=== PATIENT | female | born 1930 | race Caucasian/White ===

== ENCOUNTER 2017-11-18 21:46 | Emergency (ER) | payer MEDICARE, OTHER ==
[~2017-11-18] VITALS: Wt 53.5 kg
[~2017-11-18 21:46] MED LIST: ASPIRIN ADULT L81 M2 PO; ASPIRIN325 MG PO; CALCI-MAX CAPS1 EACH PO; CALCIUM 600600 M2 PO; CEROVITE SENIOR1 TA1 PO; CIPRO500 MG PO; COUMADIN1 M1 PO; COUMADIN3 M1 PO; DIPHENHYDRAMINE PO; DOCUSATE SODIU100 M2 PO; DUREZOL 5 ML5 ML OD; EFFEXOR XR150 M1 PO; ESCITALOPRAM OX10 MG PO; FOSAMAX70 M1 PO; FOSAMAX70 MG PO; Ferrex 150150 MG PO; GOOD SENSE PAI650 M1 PO; HYDROCODONE BIT1 T11 PO; LISINOPRIL2.5 MG PO; LISINOPRIL5 MG PO; Lovenox40 MG/0.4 PO; MEGACE40 MG PO; MIRALAX POWDER17 G1 PO; MOTRIN800 MG PO; NORCO 325 MG-51 TAB PO; NORCO 5-325 TA1 EACH PO; OCUVITE1 TA1 PO; POLYETHYLE17 GM/Dose PO; PRAVACHOL20 MG PO; PRAVACHOL40 MG PO; PRESERVISION A1 EAC1 PO; PRISTIQ ER25 MG PO; PROLENSA3 ML OD; PROTONIX TR40 M1 PO; SYNTHROID,LEVO25 MCG PO
[2017-11-18 21:49] VITALS: BP 135/57
[2017-11-18 22:32] LABS: BASO # 0.1 10*3/uL (0.0-0.1); BASO % 0.6 % (0.0-1.0); EOS # 0.2 10*3/uL (0.0-0.4); EOS % 2.4 % (1.0-4.0); HEMOGLOBIN 12.7 g/dl (12.0-16.0); LYMPH # 2.6 10*3/uL (1.3-4.4); LYMPH % 30.9 % (27.0-41.0); MEAN CELL VOLUME 93.3 fl (81.0-99.0); MEAN CORPUSCULAR HGB 30.4 pg (27.0-31.0); MEAN CORPUSCULAR HGB CONC 32.6 g/dl (33.0-37.0); MEAN PLATELET VOLUME 8.7 fl (9.6-12.3); MONO # 0.9 10*3/uL (0.1-1.0); MONO % 10.3 % (3.0-9.0); NEUT # 4.7 10*3/uL (2.3-7.9); NEUT % 55.6 % (47.0-73.0); PLATELET COUNT AUTOMATED 211 10*3/uL (130-400); RED BLOOD COUNT 4.18 10*6/uL (4.10-5.10); RED CELL DISTRI WIDTH 13.6 % (0-14.5); WHITE BLOOD COUNT 8.4 10*3/uL (4.8-10.8)
[2017-11-18 22:41] LABS: ACT PARTIAL THROMBO TIME 24.2 SECONDS (20.8-31.5)
[2017-11-18 22:49] LABS: ALBUMIN 3.6 gm/dl (3.1-4.5); ALKALINE PHOSPHATASE 102 U/L (45-117); BUN 18 mg/dl (7-24); CHLORIDE 95 mmol/L (98-107); CREATININE 0.81 mg/dL (0.55-1.02); POTASSIUM 4.8 mmol/L (3.5-5.1); SGOT/AST 24 IU/L (3-35); SGPT/ALT 23 U/L (12-78); SODIUM 129 mmol/L (136-145); TOTAL PROTEIN 8.1 gm/dL (6.4-8.2); TROPONIN I < 0.015 ng/ml (<0.045)
== END 2017-11-18 23:52 | disposition other institution (70) ==
LOC: ED 21:46
PROVIDERS: Student in an Organized Health Care Education/Training Program
DX: I73.9 Peripheral vascular disease, unspecified (principal); Z79.899 Other long term (current) drug therapy; Z79.82 Long term (current) use of aspirin; Z86.73 Personal history of transient ischemic attack (TIA), and cerebral infarction without residual deficits

== ENCOUNTER → 2017-12-25 | Outpatient (CLI) | payer MEDICARE, OTHER ==
[~2017-12-25] MED LIST changes: +ALENDRONATE SOD70 M1 PO; +ASPIRIN81 M1 PO; +CALCIUM CARBON600 M4 PO; +CEFUROXIME AXE250 MG PO; +DEPAKOTE SPRIN125 MG PO; +DOCUSOFT-S100 MG PO; +MILK OF MA400 MG/52 PO; +PEG3350238 GM PO; +PRESERVISION A1 EACH PO; +PROTONIX40 MG PO; +Synthroid,Levo50 MCG PO; +TYLENOL325 M3 PO; +ZESTRIL2.5 MG PO
== END | disposition home or self-care (01) ==
LOC: CT 09:44
DX: I70.298 Other atherosclerosis of native arteries of extremities, other extremity (principal); I74.3 Embolism and thrombosis of arteries of the lower extremities; I73.9 Peripheral vascular disease, unspecified

== ENCOUNTER 2018-01-28 16:55 | Inpatient (IN) | payer MEDICARE, OTHER ==
[~2018-01-28] VITALS: Ht 157.4 cm; Wt 53.6 kg
--- NOTE | ~2018-01-28 | PR ---
[place], [place] PROGRESS NOTE NAME: RUBIO TONEY [facility] #: [id number] UNIT #: [id number] ROOM: 420 DOCTOR: CORY ARZOLA MD BIRTHDATE: [birth year] DOS: 01/30/2018 SUBJECTIVE: The patient is doing well without any complaints. She is sitting up in a chair. She is awake and alert and oriented; does not have any chest pain or shortness of breath. PHYSICAL EXAMINATION: VITAL SIGNS: Blood pressure is 149/82, pulse of 80, respirations 16, temperature 97.8. LUNGS: Clear. HEART: Regular. ABDOMEN: Obese, soft, nontender. EXTREMITIES: Without any edema. ASSESSMENT AND PLAN: 1. Chronic atrial fibrillation, not a candidate for anticoagulants, this is controlled. 2. Hypotension, possibly from poor p.o. intake. Lisinopril was discontinued, but the blood pressure is starting to go up, so we will restart the medicine. 3. Adult failure to thrive. She is stable and can go back to the correction today. 4. Urinary tract infection. Urine culture has come back negative, but she will finish the course of Ceftin as an outpatient. CORY ARZOLA MD CM:PNNAMAN 0 53 CORY ARZOLA MD 01/30/18 175 interface
--- NOTE | ~2018-01-28 | PR ---
[place], [place] PROGRESS NOTE NAME: RUBIO TONEY [facility] #: [id number] UNIT #: [id number] ROOM: 420 DOCTOR: CORY ARZOLA MD BIRTHDATE: [birth year] DOS: 01/31/2018 SUBJECTIVE: The patient is about the same, does not have any new complaints. She was supposed to be discharged yesterday, but was held back because the long-term felt that one more day stay in the hospital would help get her long-term approved. OBJECTIVE: VITAL SIGNS: Blood pressure is 119/90, pulse of 88, respirations 20, temperature 98.7. LUNGS: Diminished breath sounds, clear. HEART: Regular. ABDOMEN: Obese, soft, nontender. EXTREMITIES: Without any edema. ASSESSMENT AND PLAN: 1. The patient with adult failure to thrive. The patient to go back to long-term. 2. Hypotension, possibly from poor p.o. intake, which is hydrated and the pressures have come back up. 3. Chronic atrial fibrillation, not a candidate for any anticoagulation. The patient is also at high risk for transient ischemic attacks. PLAN: Plan is to discharge today and follow up as an outpatient. CORY ARZOLA MD CM:PNTRANS [id number] CORY ARZOLA MD 02/19/18 0052 interface
--- NOTE | ~2018-01-28 | DS ---
[place], [place] DISCHARGE SUMMARY NAME: RUBIO TONEY [facility] #: [id number] UNIT #: [id number] ROOM: 420 DOCTOR: CORY ARZOLA MD BIRTHDATE: [birth year] DOS: 01/30/2018 DIAGNOSES: 1. Hypotension which has resolved. 2. Benign hypertension. 3. Chronic atrial fibrillation. 4. Depakote toxicity. 5. Urinary tract infection has been ruled out. 6. Adult failure to thrive. 7. History of multiple falls. 8. Postmenopausal osteoporosis. HOSPITAL COURSE: This patient is very well known to us. She was found to be increasingly weak, tired and was hypotensive at the half-way. The patient was brought to the Emergency Room. She did not have any evidence of dehydration, but the patient was placed on fluids and a possibility of UTI was raised. She also had extremely elevated Depakote levels. The Depakote was discontinued. After that the patient has improved. She has perked up and is more awake and alert and oriented. Answers questions appropriately. Her lisinopril will be restarted because the blood pressure has starting to go up at a lower dose. The patient is stable and improved and is not having any complaints today, so plan is to discharge her to home today. Please do not start the patient back on Depakote. The rest of the discharge medications are: Ceftin 250 twice a day for 5 days, alendronate 70 once weekly, calcium 600 mg twice a day, aspirin 81 daily, Colace 100 b.i.d., lisinopril 2.5 daily, MiraLax 17 grams daily p.r.n., pravastatin 40 daily, PreserVision 1 tablet daily, Pristiq 50 mg daily, Protonix 40 daily, levothyroxine 50 mcg daily, Tylenol 325 q. 6 p.r.n. CORY ARZOLA MD CM:DISCHARG 3 CORY ARZOLA MD 01/30/18 0932 interface
--- NOTE | ~2018-01-28 | WRIGHTHP ---
[place], [place] PATIENT HISTORY AND PHYSICAL EXAM [id number] UNIT #: [id number] ROOM: 420 DOCTOR: CORY ARZOLA MD BIRTHDATE: [birth year] DOS: HISTORY OF PRESENT ILLNESS: This patient is very well known to us. The patient comes in with complaints of hypotension. The staff at the residential called and stated the patient has been increasingly weak for the last few days and was noted to have low blood pressure, so the patient was sent out to the Emergency Room where she was evaluated and was admitted. She denies having any chest pains, palpitations, does not have any fever or chills, does not have any abdominal pain, nausea, any emesis, does not have any chest pains or palpitations. PAST MEDICAL HISTORY: Significant for: 1. Chronic atrial fibrillation, not a candidate for anticoagulation. 2. Multiple falls. 3. Adult failure to thrive. 4. Benign hypertension. 5. Postmenopausal osteoporosis. MEDICATIONS: That the patient is currently on are lisinopril 2.5, Fosamax, calcium supplement, major depression. SOCIAL HISTORY: Nonsmoker. Does not use any alcohol. PHYSICAL EXAMINATION: GENERAL: The patient is awake and alert and oriented this morning. VITAL SIGNS: Graphic trend shows a blood pressure 136/68, pulse of 76, respirations 19, temperature 98.3. LUNGS: Clear. HEART: Regular. ABDOMEN: Soft. EXTREMITIES: Without any edema. ASSESSMENT AND PLAN: 1. Hypotension, possibly from poor p.o. intake and antihypertensives, which will be discontinued. 2. Possible urinary tract infection. Urine culture has been reflexed. IV antibiotics have been started. 3. Adult failure to thrive, should be able to go back to the residential once we identify the bacteria. [place], [place] PATIENT HISTORY AND PHYSICAL EXAM NAME: RUBIO TONEY UNIT #: [id number] ROOM: 420 DOCTOR: CORY ARZOLA MD BIRTHDATE: [birth year] CORY ARZOLA MD CM:HISPHYS:PATIENT HISTORY AND PHYSICAL EXAMINATION 2 0833 CORY ARZOLA MD 02/19/18 0052 interface
[~2018-01-28 16:55] MED LIST changes: -ALENDRONATE SOD70 M1 PO; -ASPIRIN81 M1 PO; -CALCIUM CARBON600 M4 PO; -CEFUROXIME AXE250 MG PO; -DEPAKOTE SPRIN125 MG PO; -DOCUSOFT-S100 MG PO; -MILK OF MA400 MG/52 PO; -PEG3350238 GM PO; -PRESERVISION A1 EACH PO; -PROTONIX40 MG PO; -Synthroid,Levo50 MCG PO; -TYLENOL325 M3 PO; -ZESTRIL2.5 MG PO
[2018-01-28 17:01] VITALS: BP 102/56
[2018-01-28] MEDS ORDERED: ALENDRONATE SOD70 M1 PO (17:20)
[2018-01-28] MEDS ORDERED: ASPIRIN81 M1 PO (17:21)
[2018-01-28] MEDS ORDERED: CALCIUM CARBON600 M4 PO (17:21)
[2018-01-28] MEDS ORDERED: DEPAKOTE SPRIN125 MG PO (17:22)
[2018-01-28] MEDS ORDERED: ZESTRIL2.5 MG PO (17:22)
[2018-01-28] MEDS ORDERED: DOCUSOFT-S100 MG PO (17:22)
[2018-01-28] MEDS ORDERED: MILK OF MA400 MG/52 PO (17:22)
[2018-01-28] MEDS ORDERED: PRESERVISION A1 EACH PO (17:23)
[2018-01-28] MEDS ORDERED: PEG3350238 GM PO (17:23)
[2018-01-28] MEDS ORDERED: PRAVACHOL40 MG PO (17:23)
[2018-01-28] MEDS ORDERED: PROTONIX40 MG PO (17:24)
[2018-01-28] MEDS ORDERED: Synthroid,Levo50 MCG PO (17:24)
[2018-01-28] MEDS ORDERED: PRISTIQ ER25 MG PO (17:24)
[2018-01-28] MEDS ORDERED: TYLENOL325 M3 PO (17:25)
[2018-01-28 17:30] LABS: BILIRUBIN NEGATIVE (NEGATIVE); BLOOD NEGATIVE (NEGATIVE); CLARITY SL CLOUDY (CLEAR); COLOR YELLOW (YELLOW); GLUCOSE NEGATIVE (NEGATIVE); KETONE TRACE (NEGATIVE); LEUKO ESTERASE 1+ (NEGATIVE); NITRITE NEGATIVE (NEGATIVE)
[2018-01-28 17:38] LABS: BACTERIA 2+; EPITHELIAL CELLS TNTC; RBC 0-2 rbc/hpf (0-2); URIC ACID CRYSTALS TR
[2018-01-28 17:52] LABS: BASO % 0.2 % (0.0-1.0); EOS # 0.1 10*3/uL (0.0-0.4); EOS % 0.7 % (1.0-4.0); HEMATOCRIT 39.7 % (37.0-47.0); HEMOGLOBIN 12.9 g/dl (12.0-16.0); LYMPH # 2.2 10*3/uL (1.3-4.4); LYMPH % 23.8 % (27.0-41.0); MEAN CELL VOLUME 94.7 fl (81.0-99.0); MEAN CORPUSCULAR HGB 30.8 pg (27.0-31.0); MEAN CORPUSCULAR HGB CONC 32.5 g/dl (33.0-37.0); MEAN PLATELET VOLUME 9.9 fl (9.6-12.3); MONO # 0.7 10*3/uL (0.1-1.0); MONO % 7.9 % (3.0-9.0); NEUT # 6.2 10*3/uL (2.3-7.9); NEUT % 67.2 % (47.0-73.0); PLATELET COUNT AUTOMATED 160 10*3/uL (130-400); RED BLOOD COUNT 4.19 10*6/uL (4.10-5.10); RED CELL DISTRI WIDTH 14.5 % (0-14.5); WHITE BLOOD COUNT 9.2 10*3/uL (4.8-10.8)
[2018-01-28 18:10] LABS: ALBUMIN 3.1 gm/dl (3.1-4.5); ALKALINE PHOSPHATASE 83 U/L (45-117); BUN 23 mg/dl (7-24); CHLORIDE 98 mmol/L (98-107); CREATININE 0.75 mg/dL (0.55-1.02); POTASSIUM 4.9 mmol/L (3.5-5.1); SGOT/AST 18 IU/L (3-35); SGPT/ALT 14 U/L (12-78); SODIUM 135 mmol/L (136-145); TOTAL PROTEIN 7.4 gm/dL (6.4-8.2)
[2018-01-28 18:34] VITALS: BP 98/54
[2018-01-28 20:00] VITALS: BP 102/52
[2018-01-29] VITALS: BP 136/68
[2018-01-29 06:34] LABS: BASO % 0.6 % (0.0-1.0); EOS # 0.1 10*3/uL (0.0-0.4); EOS % 1.7 % (1.0-4.0); HEMATOCRIT 39.3 % (37.0-47.0); HEMOGLOBIN 12.6 g/dl (12.0-16.0); LYMPH # 2.5 10*3/uL (1.3-4.4); LYMPH % 39.7 % (27.0-41.0); MEAN CELL VOLUME 94.5 fl (81.0-99.0); MEAN CORPUSCULAR HGB 30.3 pg (27.0-31.0); MEAN CORPUSCULAR HGB CONC 32.1 g/dl (33.0-37.0); MEAN PLATELET VOLUME 9.9 fl (9.6-12.3); MONO # 0.6 10*3/uL (0.1-1.0); MONO % 9.1 % (3.0-9.0); NEUT # 3.1 10*3/uL (2.3-7.9); NEUT % 48.6 % (47.0-73.0); PLATELET COUNT AUTOMATED 165 10*3/uL (130-400); RED BLOOD COUNT 4.16 10*6/uL (4.10-5.10); RED CELL DISTRI WIDTH 14.3 % (0-14.5); WHITE BLOOD COUNT 6.3 10*3/uL (4.8-10.8)
[2018-01-29 06:35] LABS: BUN 19 mg/dl (7-24); CHLORIDE 102 mmol/L (98-107); CREATININE 0.75 mg/dL (0.55-1.02); POTASSIUM 4.1 mmol/L (3.5-5.1); SODIUM 137 mmol/L (136-145)
[2018-01-29 08:00] VITALS: BP 112/80; BP 154/87
[2018-01-29 12:00] VITALS: BP 146/71
[2018-01-29 16:00] VITALS: BP 136/64
[2018-01-29 20:00] VITALS: BP 149/85
[2018-01-30] VITALS: BP 149/82
[2018-01-30] MEDS ORDERED: CEFUROXIME AXE250 MG PO (07:57)
[2018-01-30 08:00] VITALS: BP 152/73; BP 152/88
[2018-01-30 12:00] VITALS: BP 144/79
[2018-01-30 16:00] VITALS: BP 147/77
[2018-01-30 20:00] VITALS: BP 152/82
[2018-01-31] VITALS: BP 167/85
[2018-01-31 08:00] VITALS: BP 119/90
[2018-04-12] MEDS ORDERED: CYMBALTA60 MG PO (22:01)
[2018-04-12] MEDS ORDERED: RANITIDINE HCL300 M2 PO (22:01)
[2018-04-12] MEDS ORDERED: LASIX20 MG PO (22:02)
[2018-04-12] MEDS ORDERED: FOSAMAX70 M1 PO (22:03)
[2018-04-12] MEDS ORDERED: ASPIRIN CHEWABL81 MG PO (22:04)
[2018-04-13] MEDS ORDERED: EXELON1 EAC1 T (02:48)
[2018-04-13] MEDS ORDERED: PRESERVISION A1 EAC2 PO (02:58)
[2018-04-16] MEDS ORDERED: LOSARTAN POTASS50 M1 PO (08:26)
== END 2018-01-31 11:03 | disposition other institution (70) | DRG 314 ==
LOC: ED 16:55 → EDHOLD 18:28 → 4E 18:28
PROVIDERS: Emergency Medicine; Internal Medicine
DX: I95.9 Hypotension, unspecified (principal); G93.41 Metabolic encephalopathy; E86.0 Dehydration; E87.1 Hypo-osmolality and hyponatremia; I48.2 Chronic atrial fibrillation; I73.9 Peripheral vascular disease, unspecified; I10 Essential (primary) hypertension; M81.0 Age-related osteoporosis without current pathological fracture; R62.7 Adult failure to thrive; T42.6X5A Adverse effect of other antiepileptic and sedative-hypnotic drugs, initial encounter; Z79.82 Long term (current) use of aspirin; Z79.899 Other long term (current) drug therapy; Z86.73 Personal history of transient ischemic attack (TIA), and cerebral infarction without residual deficits; Z87.81 Personal history of (healed) traumatic fracture; Z98.51 Tubal ligation status; Y92.89 Other specified places as the place of occurrence of the external cause

== ENCOUNTER 2018-03-17 19:46 | Inpatient (IN) | payer MEDICARE, OTHER ==
[~2018-03-17] VITALS: Ht 152.4 cm; Wt 51.8 kg
--- NOTE | ~2018-03-17 | DS ---
[place], [place] DISCHARGE SUMMARY NAME: RUBIO TONEY UNIT #: [id number] ROOM: 511 DOCTOR: CORY ARZOLA MD BIRTHDATE: [birth year] DOS: 03/20/2018 DIAGNOSES: 1. 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 2. Chronic atrial fibrillation, not a candidate for anticoagulants because of fall risk. 3. Benign hypertension. 4. Adult failure to thrive. 5. Postmenopausal osteoporosis. 6. Major depression, mild, recurrent. 7. Metabolic encephalopathy, multifactorial. HOSPITAL COURSE: This patient is very well known to us, 87 years old, was brought in because the patient was unable to sleep for more than 24 hours. Nursing staff thought the patient was increasingly confused, was sent out. When in the ER, she was diagnosed with hyponatremia and admitted. After admission, the patient was placed on IV fluids with improvement in sodium levels. The Lasix was held. The patient was also started on rivastigmine patch for her dementia. Consultation with Dr. Suarez was obtained. The patient has been on Pristiq at the [facility] for quite some time. This was discontinued and placed on Cymbalta. The patient has remained stable without any new problems. The confusion has resolved. She is more awake and alert and oriented. The plan is therefore to discharge her to the [facility]pc. She is on some Cymbalta 30 daily. Here she will need to continue that for 2 more days and then switch to 60 mg daily. DISCHARGE MEDICATIONS: Rivastigmine 4.6 mg patch every morning, calcium 600 b.i.d., Colace 100 b.i.d., Zestril 2.5 daily, Pravachol 40 daily, PreserVision 1 tablet daily, Protonix 40 daily, levothyroxine 50 mcg daily, Tylenol 325 q. 6 hours p.r.n. Lasix and Pristiq has been discontinued. Cymbalta 30 daily for 3 more days and then change to 60 mg daily. Please do a basic metabolic panel, CBC, thyroid function test on Sunday. [place], [place] DISCHARGE SUMMARY NAME: RUBIO TONEY UNIT #: [id number] ROOM: 511 DOCTOR: CORY ARZOLA MDDATE: [birth year] CORY ARZOLA MD CM:ANEESH 1 08 CORY ARZOLA MD 03/20/181008 interface
--- NOTE | ~2018-03-17 | WRIGHTHP ---
[place], [place] PATIENT HISTORY AND PHYSICAL EXAM NAME: RUBIO TONEY [facility] #: [id number] UNIT #: [id number] ROOM: 511 DOCTOR: CORY ARZOLA MD BIRTHDATE: [birth year] DOS: 03/17/2018 HISTORY OF PRESENT ILLNESS: The patient is very well known to us, [facility]. The patient was sent out because the nurse had called saying that the patient has not slept for more than 24 hours, and she was starting to get agitated and anxious and upset. In the ER, she was evaluated and was found to be hyponatremic, and she was admitted. She does not have any complaints this morning, sitting up in a chair, trying to eat her breakfast. Her affect is pretty flat. Her mood is mostly pleasant, but at times she gets angry. PAST MEDICAL HISTORY: Significant for: 1. Small vessel disease with multi-infarct dementia. 2. Chronic atrial fibrillation, long-term use of anticoagulants, the anticoagulants have been stopped because of high risk for falls. 3. Benign hypertension. 4. Adult failure to thrive. 5. Postmenopausal osteoporosis. 6. History of UTIs. MEDICATIONS: Her medications are Tylenol, calcium, Pristiq, Colace, Lasix, levothyroxine, lisinopril, milk of mag, Protonix, Pravachol, and polyethylene glycol. SOCIAL HISTORY: Nonsmoker. Does not use any alcohol. Lives at the intermediate. PHYSICAL EXAMINATION: GENERAL: She is awake and alert, is not oriented to time, place or person: VITAL SIGNS: Graphic trend shows a pressure of 132/70, pulse of 80, respirations 14, afebrile. LUNGS: Clear. HEART: Regular. ABDOMEN: Soft, scaphoid. EXTREMITIES: Without any edema. The patient tries to answer questions, but most of her thought is about her previous residence and the fact that her daughter tried to sell it. She seems fixated on those ideas for the last several years now. ASSESSMENT AND PLAN: 1. Hyponatremia, possibly from Lasix, will be discontinued and placed on IV fluids. 2. Multiinfarct dementia, add Exelon. 3. Confusion, possibly related to dementia. Awaiting consultation with Dr. Suarez. Further adjustments in psych medications. [place], [place] PATIENT HISTORY AND PHYSICAL EXAM NAME: RUBIO TONEY UNIT #: [id number] ROOM: 511 DOCTOR: CORY ARZOLA MD BIRTHDATE: [birth year] CORY ARZOLA MD CM:HISPHYS:PATIENT HISTORY AND PHYSICAL EXAMINATION 4 CORY ARZOLA MD 03/18/18 0922 interface
--- NOTE | ~2018-03-17 | PR ---
[place], [place] PROGRESS NOTE NAME: RUBIO TONEY [facility] #: [id number] UNIT #: [id number] ROOM: 511 DOCTOR: CORY ARZOLA MD BIRTHDATE: [birth year] DOS: SUBJECTIVE: The patient is not having any new complaints. Appreciate psych input. OBJECTIVE: VITAL SIGNS: Blood pressure is 157/86, pulse of 84, respirations 20, temperature 100.1. LUNGS: Clear. HEART: Regular. ABDOMEN: Soft. EXTREMITIES: Without any edema. LABORATORY DATA: Sodium is up to 133. ASSESSMENT AND PLAN: 1. Hyponatremia, possibly from diuretics. 2. Multivascular dementia, on medications: 3. Major depression, recurrent, mild. Psych consult on the patient was ordered, suggested discontinuing Pristiq and adding Cymbalta. 4. Low-grade fever. Urine has been reflexed and the urine culture has not been completed yet. CORY ARZOLA MD CM:PNTRANS 0835 CORY ARZOLA MD 03/19/18 0836 interface
--- NOTE | ~2018-03-17 | CON ---
[place], [place] REPORT OF CONSULTATION [id number] #: [id number] ROOM: 511 DOCTOR: AUGUSTO, KEVIN BIRTHDATE: [birth year] DOS: 03/18/2018 HISTORY OF PRESENT ILLNESS: The patient is an 87-year-old female referred by Dr. Singh with concerns for changes in her emotional status. The patient had become increasingly agitated, anxious and upset after not having slept for 24 hours. She was hyponatremic in the ED. At the present time, the patient is on the 5th floor of [facility]. The patient lives in the [place] [address]. She states that she is and has 4 children. The patient denied alcohol, tobacco and illegal drug use. PAST MEDICAL HISTORY: Small vessel disease with multi-infarct dementia, chronic atrial fibrillation, benign hypertension, adult failure to thrive, postmenopausal osteoporosis. MEDICATIONS: Zocor, Exelon, Zestril, Synthroid, Protonix, Pristiq, Colace. The patient was awake, alert and oriented to person, place and approximate to time. She could name the current president. She was lying in bed in no apparent distress. Eye contact and social skills were fair. The patient was pleasant and cooperative. Mood was depressed without suicidal ideation, plan or intent. She reports symptoms of hopelessness and helplessness and worries frequently about her children. Affect was blunted. Speech was soft. Expressive and receptive language appeared to be within normal limits conversationally with the patient being hard of hearing. Thought process was goal directed. There was no evidence of hallucinations or delusions. She demonstrated an ease of confusion in conversation and repeated herself several times, remote and recent memory appeared compromised on a conversational basis. Insight and judgment appeared fair. DIAGNOSES: Major depressive disorder, recurrent, unspecified; unspecified anxiety disorder; major vascular neurocognitive disorder. RECOMMENDATIONS: Consulted with Dr. Suarez about the patient's medications. He suggested discontinuing Pristiq and starting Cymbalta 30 mg for 1 week and then increasing the Cymbalta to 60 mg after that. Thank you very much for this consult. Joan Levin, PhD CM:CONSTR:REPORT OF CONSULTATION 1716 03/19/18 0255 interface
--- NOTE | ~2018-03-17 | PR ---
[place], [place] PROGRESS NOTE [id number] UN[facility] #: [id number] ROOM: 511 DOCTOR: CORY ARZOLA MD BIRTHDATE: [birth year] DOS: SUBJECTIVE: The patient is doing fine without any complaints this morning. Says that she did not get a good night sleep because the IV has leaked. OBJECTIVE: VITAL SIGNS: Graphic trend shows blood pressure 157/75, pulse of 82, respirations 18, temperature 98. LUNGS: Clear. HEART: Regular. ABDOMEN: Soft. EXTREMITIES: Without any edema. LABORATORY DATA: Normal, except for sodium of 132. ASSESSMENT AND PLAN: 1. Hyponatremia, possibly diuretic related. It is much better. The plan is to discharge. 2. Major depression, mild. Already seen by Psych. 3. Multi-vascular dementia. Medications were started. Stable. Plan is to discharge. CORY ARZOLA MD CM:PNTRANS 0909 [id number] CORY ARZOLA MD 03/21/18 0306 interface
--- NOTE | ~2018-03-17 | EKG ---
[place], [place] ELECTROCARDIOGRAM REPORT NAME: RUBIO TONEY UNIT #: [id number] ROOM: 511 DOCTOR: MER DRAFT REPORT BIRTHDATE: [birth year] [facility] Test Date: 2018-03-17 Test Time: 20:16:53 Pat Name: RUBIO TONEY Department: Room: 511 Gender: F Boom Tender: Ned Aguilar : 1930 Requested By: AMRITA BARNETT Order Number: [id number] Reading MD: Sola Boyer MD Measurements Intervals [place] Rate: 74 P: [place]: QRS: 23 QRSD: 95 T: 60 QT: 407 QTc: 452 Interpretive Statements Atrial fibrillation Borderline low voltage, extremity leads Minimal ST elevation, anterior leads Electronically Signed On 03-19-2018 14:47:12 PDT by Sola Boyer MD CM:EKGRPT:ELECTROCARDIOGRAM REPORT 15 1447 AMRITA CHE DRAFT REPORT AMRITA BARNETT DO
[~2018-03-17 19:46] MED LIST changes: +ALENDRONATE SOD70 M1 PO; +ASPIRIN81 M1 PO; +CALCIUM CARBON600 M4 PO; +CEFUROXIME AXE250 MG PO; +DEPAKOTE SPRIN125 MG PO; +DOCUSOFT-S100 MG PO; +MILK OF MA400 MG/52 PO; +PEG3350238 GM PO; +PRESERVISION A1 EACH PO; +PROTONIX40 MG PO; +Synthroid,Levo50 MCG PO; +TYLENOL325 M3 PO; +ZESTRIL2.5 MG PO
[2018-03-17 19:52] VITALS: BP 131/59
[2018-03-17 20:25] LABS: BASO % 0.4 % (0.0-1.0); EOS # 0.1 10*3/uL (0.0-0.4); EOS % 1.6 % (1.0-4.0); HEMATOCRIT 39.3 % (37.0-47.0); LYMPH # 1.9 10*3/uL (1.3-4.4); LYMPH % 21.1 % (27.0-41.0); MEAN CELL VOLUME 92.7 fl (81.0-99.0); MEAN CORPUSCULAR HGB 30.7 pg (27.0-31.0); MEAN CORPUSCULAR HGB CONC 33.1 g/dl (33.0-37.0); MEAN PLATELET VOLUME 9.3 fl (9.6-12.3); MONO # 0.9 10*3/uL (0.1-1.0); MONO % 10.1 % (3.0-9.0); NEUT % 66.6 % (47.0-73.0); PLATELET COUNT AUTOMATED 208 10*3/uL (130-400); RED BLOOD COUNT 4.24 10*6/uL (4.10-5.10); RED CELL DISTRI WIDTH 13.7 % (0-14.5); WHITE BLOOD COUNT 8.9 10*3/uL (4.8-10.8)
[2018-03-17] MEDS ORDERED: LASIX20 MG PO (20:40)
[2018-03-17 20:43] LABS: ALBUMIN 3.4 gm/dl (3.1-4.5); ALKALINE PHOSPHATASE 106 U/L (45-117); BUN 14 mg/dl (7-24); CHLORIDE 89 mmol/L (98-107); CREATININE 0.81 mg/dL (0.55-1.02); POTASSIUM 3.9 mmol/L (3.5-5.1); SGOT/AST 26 IU/L (3-35); SGPT/ALT 17 U/L (12-78); SODIUM 125 mmol/L (136-145); TOTAL PROTEIN 7.7 gm/dL (6.4-8.2)
[2018-03-17 20:47] LABS: ACETAMINOPHEN (TYLENOL) < 5.0 ug/ml (10-30); ETHYL ALCOHOL < 3.0 mg/dl (<3); TROPONIN I < 0.015 ng/ml (<0.045)
[2018-03-17 21:32] LABS: BILIRUBIN NEGATIVE (NEGATIVE); BLOOD NEGATIVE (NEGATIVE); CLARITY CLEAR (CLEAR); COLOR YELLOW (YELLOW); GLUCOSE NEGATIVE (NEGATIVE); KETONE NEGATIVE (NEGATIVE); LEUKO ESTERASE NEGATIVE (NEGATIVE); NITRITE NEGATIVE (NEGATIVE); SPECIFIC GRAVITY <= 1.005 (1.005-1.030)
[2018-03-17 21:39] LABS: BACTERIA TRACE; EPITHELIAL CELLS 0-2
[2018-03-17 21:41] LABS: URINE AMPHETAMINES < 1000 (1000ng/ml); URINE BARBITURATES < 200 (200ng/ml); URINE BENZODIAZEPINES < 200 (200ng/ml); URINE CANNABINOIDS (THC) < 50 (50ng/ml); URINE COCAINE < 300 (300ng/ml); URINE METHADONE < 300 (300ng/ml); URINE OPIATES < 300 (300ng/ml); URINE PHENCYCLIDINE < 25 (25ng/ml)
[2018-03-17 22:18] VITALS: BP 150/75
[2018-03-17 22:50] VITALS: BP 165/94
[2018-03-17 23:50] VITALS: BP 143/58
[2018-03-18 07:19] LABS: BUN 12 mg/dl (7-24); CHLORIDE 97 mmol/L (98-107); CREATININE 0.61 mg/dL (0.55-1.02); POTASSIUM 4.1 mmol/L (3.5-5.1); SODIUM 132 mmol/L (136-145)
[2018-03-18 08:00] VITALS: BP 137/76
[2018-03-18 16:00] VITALS: BP 146/83
[2018-03-18 20:00] VITALS: BP 149/56
[2018-03-19] VITALS: BP 157/86
[2018-03-19 07:04] LABS: BUN 9 mg/dl (7-24); CHLORIDE 102 mmol/L (98-107); CREATININE 0.61 mg/dL (0.55-1.02); POTASSIUM 4.2 mmol/L (3.5-5.1); SODIUM 133 mmol/L (136-145)
[2018-03-19 08:00] VITALS: BP 133/82
[2018-03-19 12:00] VITALS: BP 133/55
[2018-03-19 16:00] VITALS: BP 124/51
[2018-03-19 20:00] VITALS: BP 152/66
[2018-03-20] VITALS: BP 144/80; BP 164/83
[2018-03-20 07:00] LABS: BUN 8 mg/dl (7-24); CHLORIDE 99 mmol/L (98-107); CREATININE 0.58 mg/dL (0.55-1.02); POTASSIUM 4.1 mmol/L (3.5-5.1); SODIUM 132 mmol/L (136-145)
[2018-03-20 08:00] VITALS: BP 157/75
[2018-03-20] MEDS ORDERED: RIVASTIGMINE1 EACH T (09:12)
[2018-03-20 12:00] VITALS: BP 111/53
[2018-03-20 16:00] VITALS: BP 151/55
[2018-04-12] MEDS ORDERED: RANITIDINE HCL300 M2 PO (22:01)
[2018-04-12] MEDS ORDERED: CYMBALTA60 MG PO (22:01)
[2018-04-12] MEDS ORDERED: LASIX20 MG PO (22:02)
[2018-04-12] MEDS ORDERED: FOSAMAX70 M1 PO (22:03)
[2018-04-12] MEDS ORDERED: ASPIRIN CHEWABL81 MG PO (22:04)
[2018-04-13] MEDS ORDERED: EXELON1 EAC1 T (02:48)
[2018-04-13] MEDS ORDERED: PRESERVISION A1 EAC2 PO (02:58)
[2018-04-16] MEDS ORDERED: LOSARTAN POTASS50 M1 PO (08:26)
== END 2018-03-20 17:30 | disposition other institution (70) | DRG 640 ==
LOC: ED 19:46 → EDHOLD 21:45 → 5E 21:45
PROVIDERS: Internal Medicine; Student in an Organized Health Care Education/Training Program
DX: E87.1 Hypo-osmolality and hyponatremia (principal); G93.41 Metabolic encephalopathy; F33.0 Major depressive disorder, recurrent, mild; I48.2 Chronic atrial fibrillation; F41.9 Anxiety disorder, unspecified; F01.50 Vascular dementia, unspecified severity, without behavioral disturbance, psychotic disturbance, mood disturbance, and anxiety; I10 Essential (primary) hypertension; Z66 Do not resuscitate; Z51.5 Encounter for palliative care; I73.89 Other specified peripheral vascular diseases; R62.7 Adult failure to thrive; M81.0 Age-related osteoporosis without current pathological fracture; T50.2X5A Adverse effect of carbonic-anhydrase inhibitors, benzothiadiazides and other diuretics, initial encounter; Y92.89 Other specified places as the place of occurrence of the external cause; Z87.440 Personal history of urinary (tract) infections

== ENCOUNTER 2018-05-02 11:19 | Emergency (ER) | payer MEDICARE, OTHER ==
[~2018-05-02] VITALS: Wt 54.4 kg
[~2018-05-02 11:19] MED LIST changes: +ASPIRIN CHEWABL81 MG PO; +CYMBALTA60 MG PO; +EXELON1 EAC1 T; +LASIX20 MG PO; +LOSARTAN POTASS50 M1 PO; +PRESERVISION A1 EAC2 PO; +RANITIDINE HCL300 M2 PO; +RIVASTIGMINE1 EACH T
[2018-05-02 14:41] VITALS: BP 164/83
[2018-05-02] MEDS ORDERED: TRAMADOL HCL50 MG PO (15:50)
== END 2018-05-02 15:05 | disposition home or self-care (01) ==
LOC: ED 11:19
DX: M54.5 Low back pain (principal); M25.552 Pain in left hip; I10 Essential (primary) hypertension; Z86.73 Personal history of transient ischemic attack (TIA), and cerebral infarction without residual deficits; Z91.041 Radiographic dye allergy status; Z79.82 Long term (current) use of aspirin; Z79.899 Other long term (current) drug therapy

== ENCOUNTER 2018-05-30 18:15 | Inpatient (IN) | payer MEDICARE, OTHER ==
[~2018-05-30] VITALS: Ht 165.1 cm; Wt 61.8 kg
--- NOTE | ~2018-05-30 | PR ---
[place], [place] PROGRESS NOTE [id number] #: [id number] ROOM: 422 DOCTOR: VICKEY FERNANDEZ MD BIRTHDATE: [birth year] DOS: 06/01/2018 SUBJECTIVE: The patient looks much more alert, awake and stronger today and she is communicating and mostly alert and oriented. OBJECTIVE: VITAL SIGNS: Blood pressure 106/56, heart rate of 91 beats per minute, breathing 18 times per minute, temperature 98.2 degrees Fahrenheit. GENERAL APPEARANCE: The patient is alert and oriented x3, in no visible distress. Generalized weakness. HEENT AND NECK: Exam within normal limits. CARDIOVASCULAR SYSTEM: Heart rate is regular in rate and rhythm. S1 and S2 normally audible. LUNGS: Decreased breath sounds allover. ABDOMEN: Soft, nontender. No obvious organomegaly. Bowel sounds are present. EXTREMITIES: Without significant cyanosis or edema. IMPRESSION: 1. Acute exacerbation of chronic obstructive pulmonary disease with increased shortness of breath, continues to improve with bronchodilators, oxygen, corticosteroids. 2. Advanced adult failure to thrive. The patient more awake, alert and stronger and eating better, especially because of the corticosteroids. 3. Chronic atrial fibrillation with controlled heart rates. The patient not a good candidate for anticoagulation according to past history. 4. Mixed hyperlipidemia, treated with Pravachol. 5. Chronic constipation, treated with Colace. The patient moving bowels. 6. Postmenopausal osteoporosis, treated with calcium, vitamin D and Fosamax. 7. Aekv-ra-pqymndxz protein-calorie malnutrition, being followed by Dietary. VICKEY FERNANDEZ MD CM:PNTRANS 1740 [id number] VICKEY FERNANDEZ MD 06/02/18 0517 interface
--- NOTE | ~2018-05-30 | PR ---
[place], [place] PROGRESS NOTE NAME: RUBIO TONEY [facility] #: [id number] UNIT #: [id number] ROOM: 422 DOCTOR: VICKEY FERNANDEZ MD BIRTHDATE: [birth year] DOS: 06/02/2018 SUBJECTIVE: The patient is more alert, awake, oriented and stronger. PHYSICAL EXAMINATION: GENERAL APPEARANCE: The patient is alert and oriented x 3, in no visible distress. Generalized weakness. VITAL SIGNS: Blood pressure 128/86, breathing 18 times per minute, afebrile, heart rate of 100 beats per minute. HEENT AND NECK: Exam within normal limits. CARDIOVASCULAR SYSTEM: Heart rate is regular in rate and rhythm. S1 and S2 normally audible. LUNGS: Clear to auscultation. ABDOMEN: Soft, nontender. No obvious organomegaly. Bowel sounds are present. EXTREMITIES: Without significant cyanosis or edema. IMPRESSION: 1. The patient with acute exacerbation of chronic obstructive pulmonary disease, improving with bronchodilators, oxygen and corticosteroids. 2. Advanced adult failure to thrive. The patient looking better and working with physical therapy. 3. Chronic atrial fibrillation with controlled heart rates. The patient is not a good candidate for anticoagulation. 4. Mixed hyperlipidemia, treated with Pravachol. 5. Chronic constipation, treated and controlled. The patient on Colace and moving bowels. 6. Postmenopausal osteoporosis, treated with vitamin D, calcium and Fosamax. 7. Feix-mu-kjdwzcpd protein-calorie malnutrition. The patient is working with dietary. VICKEY FERNANDEZ MD CM:PNTRANS 2310 0240 VICKEY FERNANDEZ MD 06/03/18 0238 interface
--- NOTE | ~2018-05-30 | WRIGHTHP ---
[place], [place] PATIENT HISTORY AND PHYSICAL EXAM NAME: RUBIO TONEY [facility] #: [id number] UNIT #: [id number] ROOM: 422 DOCTOR: VICKEY FERNANDEZ MD BIRTHDATE: [birth year] DOS: 05/30/2018 HISTORY OF PRESENT ILLNESS: The patient is an 87-year-old female with history of: 1. Advanced adult failure to thrive. 2. Late onset Alzheimer's type dementia. 3. Benign essential hypertension. 4. Chronic atrial fibrillation. The patient is not a good candidate for anticoagulation. 5. Mixed hyperlipidemia. 6. Hypothyroidism. The patient presented to the Emergency Department at [facility], sent over from [facility] with oxygen drop, pulse ox dropping to 72% at room air. The patient is alert and in no distress. The patient was started on 4 liters of oxygen by nasal cannula. The patient had peripheral cyanosis, but good peripheral pulses. The patient was diagnosed as having acute exacerbation of COPD and some congestive heart failure and admitted for further management with a comfort care code status. After admission, the patient looks very weak, barely talking, but in no visible distress. REVIEW OF SYSTEMS: RESPIRATORY: Increasing shortness of breath and hypoxemia. GASTROINTESTINAL: No nausea, vomiting, diarrhea, constipation, but poor appetite. CARDIOVASCULAR: No chest pains or palpitations. HOME MEDICATIONS: Tramadol and losartan, rivastigmine, Colace, pravastatin, levothyroxine, ranitidine, Cymbalta, Fosamax, aspirin. FAMILY HISTORY: Noncontributory. PHYSICAL EXAMINATION: GENERAL: Awake, alert, barely speaks, poor historian. No visible distress. HEENT AND NECK: Extraocular movements are intact. Sclerae are anicteric. Oral mucosa is moist and clean. No obvious facial weakness. Neck is supple without any lymphadenopathy. No thyromegaly. No JVD. No carotid arterial bruits. LUNGS: Clear to auscultation. No wheezing. No rhonchi. CARDIOVASCULAR SYSTEM: Heart rate is regular in rate and rhythm. S1 and S2 normally audible. No significant murmur or any other abnormal cardiac sounds. ABDOMEN: Soft, nontender. No obvious organomegaly. Bowel sounds are present. No obvious herniation. EXTREMITIES: Without significant cyanosis or edema. Warm to touch. Moves all extremities. CENTRAL NERVOUS SYSTEM: Alert and oriented x 3. Cranial nerves II-XII are intact. Speech is normal. The patient is able to move all extremities. Normal muscle strength. Deep tendon reflexes are equal on both sides. Plantars were downgoing. LABORATORY DATA: Venous Dopplers of the lower extremities without DVT. Chest [place], [place] PATIENT HISTORY AND PHYSICAL EXAM NAME: RUBIO TONEY UNIT #: [id number] ROOM: 422 DOCTOR: VICKEY FERNANDEZ MD BIRTHDATE: [birth year] x-ray without acute abnormality. Lactic acid level was normal. IMPRESSION: 1. Acute exacerbation of chronic obstructive pulmonary disease, to be treated with bronchodilators, oxygen, corticosteroids and followed closely. Hypoxemia treated with oxygen supplements. Acute over chronic respiratory failure. 2. Advance adult failure to thrive. The patient is being started on physical therapy and maintains a comfort care code status. 3. Chronic atrial fibrillation. The patient is not a good candidate for anticoagulation according to Dr. Singh' note in the past. 4. Poor appetite. The patient on appetite stimulation, will be encouraged to eat. Dietary to follow. 5. Mixed hyperlipidemia, treated with Pravachol. 6. Chronic constipation, treated with Colace. 7. Postmenopausal osteoporosis, treated with calcium, vitamin D, and Fosamax 8. Pxds-zi-arsfdlsl protein-calorie malnutrition. The patient to be followed by Dietary. VICKEY FERNANDEZ MD CM:HISPHYS:PATIENT HISTORY AND PHYSICAL EXAMINATION 1200 1218 VICKEY FERNANDEZ MD 05/31/18 1216 interface
--- NOTE | ~2018-05-30 | PR ---
[place], [place] PROGRESS NOTE [facility] [id number] UN[facility] #: [id number] ROOM: 422 DOCTOR: VICKEY FERNANDEZ MD BIRTHDATE: [birth year] DOS: 06/03/2018 SUBJECTIVE: The patient continues to improve, but still has significant leukocytosis, which is improving with IV Rocephin. OBJECTIVE: VITAL SIGNS: Blood pressure 130/76, heart rate 98 beats per minute, breathing 18 times per minute, and temperature 98.2 degrees Fahrenheit. GENERAL APPEARANCE: Generalized weakness. HEENT AND NECK: Exam within normal limits. CARDIOVASCULAR SYSTEM: Heart rate is regular in rate and rhythm. S1 and S2 normally audible. LUNGS: Clear to auscultation. ABDOMEN: Soft, nontender. No obvious organomegaly. Bowel sounds are present. EXTREMITIES: Without significant cyanosis or edema. IMPRESSION: 1. The patient with advance adult failure to thrive and generalized weakness, improving with treatment and also working with physical therapy. 2. Severe leukocytosis with acute exacerbation of chronic obstructive pulmonary disease. I will continue antibiotics and keep her for one more day because of leukocytosis improving with present treatment. 3. Chronic atrial fibrillation with controlled heart rates. The patient is not a good candidate for anticoagulation. 4. Mixed hyperlipidemia, treated with Pravachol. 5. Chronic constipation, treated and controlled. The patient is moving bowels with Colace. 6. Postmenopausal osteoporosis, treated with calcium, Fosamax, and vitamin D. 7. Oqzo-xp-povyymwg protein-calorie malnutrition. The patient is working with dietary. VICKEY FERNANDEZ MD CM:PNTRANS [id number] VICKEY FERNANDEZ MD 06/03/182229 interface
--- NOTE | ~2018-05-30 | DS ---
[place], [place] DISCHARGE SUMMARY NAME: RUBIO TONEY [facility] #: [id number] UNIT #: [id number] ROOM: 422 DOCTOR: VICKEY FERNANDEZ MD BIRTHDATE: [birth year] DOS: 06/04/2018 DISCHARGE DIAGNOSES: 1. Advanced adult failure to thrive. 2. Mild to moderate protein-calorie malnutrition. 3. Acute exacerbation of chronic obstructive pulmonary disease. 4. Leukocytosis. 5. Chronic atrial fibrillation. The patient is not a good candidate for anticoagulation. 6. Mixed hyperlipidemia. 7. Chronic constipation. 8. Postmenopausal osteoporosis. 9. Late onset Alzheimer's type dementia. 10. Benign essential hypertension. 11. Hypothyroidism. HOSPITAL COURSE: The patient presented to [facility], sent over from [facility] with drop in her oxygen level, which dropped to 72% at room air. The patient started on 4 liters of oxygen by nasal cannula and she was observed to have peripheral cyanosis, but she still had good peripheral pulses. The patient was diagnosed as having acute exacerbation of COPD and some congestive heart failure. The patient admitted, treated with bronchodilators, oxygen, corticosteroids, antibiotics and she has significantly improved. The patient appears much more stronger, awake, alert and oriented, and eating better. 1. Severe leukocytosis, apparently from acute bronchitis, possible pneumonia, which was not seen on the chest x-ray. Leukocytosis is improving with antibiotics and the patient will be continued on antibiotics as an outpatient. 2. Corticosteroid-induced leukocytosis to go away as corticosteroids are tapered off. 3. Mixed hyperlipidemia, treated with Pravachol. 4. Chronic constipation, treated with Colace. The patient is moving bowels. 5. Postmenopausal osteoporosis, treated with Fosamax, calcium and vitamin D. 6. Wvks-ao-tuvgzrbg protein-calorie malnutrition. The patient worked with dietary. LABORATORY DATA: Normal serum electrolytes. Blood sugar of 102. White cell count improved to 17,000, hemoglobin 11.1, normal platelets. Normal serum electrolytes, BUN and creatinine. DISCHARGE MANAGEMENT: DuoNebs q.i.d. as needed, aspirin 81 mg a day, levothyroxine 50 mcg daily, Cymbalta 60 mg a day, Megace 40 mg b.i.d., Colace 100 mg b.i.d., Medrol Dosepak, Augmentin 875 mg twice a day for a week, rivastigmine patch 9.5 mg daily, losartan 50 mg a day, Pepcid 40 mg a day at the nursing facility. [place], [place] DISCHARGE SUMMARY NAME: RUBIO TONEY UNIT #: [id number] ROOM: [facility] DOCTOR: VICKEY FERNANDEZ MD BIRTHDATE: [birth year] VICKEY FERNANDEZ MD CM:DISCHELEAZAR [id number] VICKEY FERNANDEZ MD 06/04/18 1743 interface
[~2018-05-30 18:15] MED LIST changes: +TRAMADOL HCL50 MG PO
--- NOTE | 2018-05-30 18:21 | NUR ---
O2 DECREASED TO 4 L NC. RESPS ARE EASY AND NON LABORED.
[2018-05-30 18:55] LABS: BASO % 0.4 % (0.0-1.0); EOS # 0.1 10*3/uL (0.0-0.4); EOS % 1.2 % (1.0-4.0); HEMATOCRIT 36.6 % (37.0-47.0); HEMOGLOBIN 12.3 g/dl (12.0-16.0); LYMPH # 1.6 10*3/uL (1.3-4.4); LYMPH % 15.6 % (27.0-41.0); MEAN CELL VOLUME 91.7 fl (81.0-99.0); MEAN CORPUSCULAR HGB 30.8 pg (27.0-31.0); MEAN CORPUSCULAR HGB CONC 33.6 g/dl (33.0-37.0); MEAN PLATELET VOLUME 9.1 fl (9.6-12.3); MONO # 0.7 10*3/uL (0.1-1.0); MONO % 7.2 % (3.0-9.0); NEUT # 7.5 10*3/uL (2.3-7.9); NEUT % 75.1 % (47.0-73.0); PLATELET COUNT AUTOMATED 241 10*3/uL (130-400); RED BLOOD COUNT 3.99 10*6/uL (4.10-5.10); RED CELL DISTRI WIDTH 16.7 % (0-14.5); WHITE BLOOD COUNT 9.9 10*3/uL (4.8-10.8)
[2018-05-30 19:10] LABS: ACT PARTIAL THROMBO TIME 23.9 SECONDS (20.8-31.5); ALBUMIN 2.8 gm/dl (3.1-4.5); ALKALINE PHOSPHATASE 97 U/L (45-117); BUN 20 mg/dl (7-24); CHLORIDE 104 mmol/L (98-107); CREATININE 1.01 mg/dL (0.55-1.02); INTERNATIONAL NORM RATIO 1.1 (2.0-3.5); LIPASE 123 U/L (73-393); POTASSIUM 4.1 mmol/L (3.5-5.1); SGOT/AST 19 IU/L (3-35); SGPT/ALT 14 U/L (12-78); SODIUM 135 mmol/L (136-145); TOTAL PROTEIN 7.1 gm/dL (6.4-8.2); TROPONIN I 0.017 ng/ml (<0.045)
[2018-05-30 19:45] VITALS: BP 119/47
[2018-05-30 20:35] VITALS: BP 114/41
[2018-05-30 21:00] VITALS: BP 114/50
[2018-05-30 21:29] VITALS: BP 107/36
--- NOTE | 2018-05-30 22:09 | NUR ---
SUBSTATION OPERATOR HELPER WAITING TO HEAR BACK FROM PCP TO DECIDE PATIENT'S CARE.
[2018-05-30 22:10] VITALS: BP 120/27
[2018-05-30 23:00] VITALS: BP 108/52
--- NOTE | 2018-05-30 23:06 | NUR ---
Time: 2307 A 87 year old FEMALE admitted to 4E under services of DR. JIM GU,VICKEY Mcgee Pt. arrived via stretcher from ER. Chief complaint: SWELLING. ESTHER ESCALERA
[2018-05-30] MEDS ORDERED: TRAMADOL HCL50 MG PO (23:29)
[2018-05-30] MEDS ORDERED: MEGESTROL ACETA40 MG PO (23:30)
--- NOTE | 2018-05-30 23:31 | NUR ---
MED REC COMPLETED WITH LIST FROM [employer]. PATIENT HARD OF HEARING AND UNABLE TO ANSWER QUESTIONS. STATES "I WANT TO GO BACK TO [facility]" WHEN ASKED QUESTIONS
--- NOTE | 2018-05-30 23:45 | NUR ---
ORDERS FROM DR ROCA AT THIS TIME
[2018-05-31] VITALS: BP 108/52
--- NOTE | 2018-05-31 07:04 | NUR ---
PHYSICAL THERAPY Nursing screen received. PT orders also received. Thank you. Shalini Acosta,PT
[2018-05-31 08:00] VITALS: BP 110/50
--- NOTE | 2018-05-31 08:31 | NUR ---
Patient is health social work professor care at [facility] and can return when medically stable for discharge
[2018-05-31 12:00] VITALS: BP 116/60
--- NOTE | 2018-05-31 14:18 | NUR ---
PHYSICAL THERAPY PAtient evaluated on 4, full evaluation to follow. Continue with PT as per plan of care with fall, left hemiparesis (chronic), alarm and max (A) precautions. May require SNF upon return to LTC. PAtient is high complexity via chart reivew, tests and evaluation: 24619. Thank you for this referral. Shalini Rioc,PT
[2018-05-31 16:00] VITALS: BP 105/40
[2018-05-31 20:00] VITALS: BP 108/43
[2018-06-01] VITALS: BP 108/61
[2018-06-01 06:49] LABS: BASO % 0.1 % (0.0-1.0); HEMATOCRIT 31.5 % (37.0-47.0); HEMOGLOBIN 10.6 g/dl (12.0-16.0); LYMPH # 0.9 10*3/uL (1.3-4.4); LYMPH % 9.3 % (27.0-41.0); MEAN CELL VOLUME 90.8 fl (81.0-99.0); MEAN CORPUSCULAR HGB 30.5 pg (27.0-31.0); MEAN CORPUSCULAR HGB CONC 33.7 g/dl (33.0-37.0); MEAN PLATELET VOLUME 9.5 fl (9.6-12.3); MONO # 0.3 10*3/uL (0.1-1.0); MONO % 2.6 % (3.0-9.0); NEUT # 8.9 10*3/uL (2.3-7.9); NEUT % 87.6 % (47.0-73.0); PLATELET COUNT AUTOMATED 233 10*3/uL (130-400); RED BLOOD COUNT 3.47 10*6/uL (4.10-5.10); RED CELL DISTRI WIDTH 16.7 % (0-14.5); WHITE BLOOD COUNT 10.1 10*3/uL (4.8-10.8)
[2018-06-01 07:02] LABS: BUN 19 mg/dl (7-24); CHLORIDE 107 mmol/L (98-107); CREATININE 0.94 mg/dL (0.55-1.02); POTASSIUM 4.7 mmol/L (3.5-5.1); SODIUM 136 mmol/L (136-145)
[2018-06-01 08:00] VITALS: BP 100/50
--- NOTE | 2018-06-01 08:25 | NUR ---
IN BED RESTING QUIETLY WITH EYES CLOSED. NO S/S OF DISTRESS. WILL CONT TO MONITOR. CALL LIGHT IN REACH. SEE ASSESS.
[2018-06-01 12:00] VITALS: BP 107/55
[2018-06-01 16:00] VITALS: BP 106/56
[2018-06-01 20:00] VITALS: BP 123/60
[2018-06-02] VITALS: BP 112/43
[2018-06-02 06:21] LABS: HEMATOCRIT 31.8 % (37.0-47.0); HEMOGLOBIN 10.8 g/dl (12.0-16.0); MEAN CELL VOLUME 91.1 fl (81.0-99.0); MEAN CORPUSCULAR HGB 30.9 pg (27.0-31.0); MEAN PLATELET VOLUME 9.5 fl (9.6-12.3); PLATELET COUNT AUTOMATED 264 10*3/uL (130-400); RED BLOOD COUNT 3.49 10*6/uL (4.10-5.10); RED CELL DISTRI WIDTH 17.2 % (0-14.5); WHITE BLOOD COUNT 21.3 10*3/uL (4.8-10.8)
[2018-06-02 06:46] LABS: BUN 23 mg/dl (7-24); CHLORIDE 107 mmol/L (98-107); CREATININE 0.85 mg/dL (0.55-1.02); POTASSIUM 5.1 mmol/L (3.5-5.1); SODIUM 137 mmol/L (136-145)
[2018-06-02 06:49] LABS: BURR CELLS FEW; OVALOCYTES FEW; PLATELET SUFFICIENCY NORMAL (NORMAL); TOTAL CELLS COUNTED 100 #CELLS
[2018-06-02 08:00] VITALS: BP 130/64
[2018-06-02 12:00] VITALS: BP 127/71
[2018-06-02 16:00] VITALS: BP 131/76
--- NOTE | 2018-06-02 17:11 | NUR ---
PER DR FERNANDEZ OK TO CHANGE BREATHING TREATMENTS TO PRN DUE TO PATIENT REFUSING THEM.
[2018-06-02 20:00] VITALS: BP 128/86
[2018-06-03] VITALS: BP 134/65
[2018-06-03 07:58] LABS: BASO % 0.1 % (0.0-1.0); HEMATOCRIT 33.5 % (37.0-47.0); HEMOGLOBIN 11.1 g/dl (12.0-16.0); LYMPH # 1.1 10*3/uL (1.3-4.4); LYMPH % 6.1 % (27.0-41.0); MEAN CELL VOLUME 91.3 fl (81.0-99.0); MEAN CORPUSCULAR HGB 30.2 pg (27.0-31.0); MEAN CORPUSCULAR HGB CONC 33.1 g/dl (33.0-37.0); MEAN PLATELET VOLUME 9.5 fl (9.6-12.3); MONO # 0.6 10*3/uL (0.1-1.0); MONO % 3.6 % (3.0-9.0); NEUT # 15.4 10*3/uL (2.3-7.9); NEUT % 89.3 % (47.0-73.0); PLATELET COUNT AUTOMATED 274 10*3/uL (130-400); RED BLOOD COUNT 3.67 10*6/uL (4.10-5.10); RED CELL DISTRI WIDTH 17.1 % (0-14.5); WHITE BLOOD COUNT 17.2 10*3/uL (4.8-10.8)
[2018-06-03 08:12] LABS: BUN 22 mg/dl (7-24); CHLORIDE 105 mmol/L (98-107); CREATININE 0.77 mg/dL (0.55-1.02); POTASSIUM 4.8 mmol/L (3.5-5.1); SODIUM 136 mmol/L (136-145)
--- NOTE | 2018-06-03 11:18 | NUR ---
PHYSICAL THERAPY Patient is eating her meal right now ,so this JAVA PROGRAMMER ANALYST will check back with patient later. ADOLFO MACK JAVA PROGRAMMER ANALYST
[2018-06-03 12:00] VITALS: BP 130/76
--- NOTE | 2018-06-03 15:48 | NUR ---
PHYSICAL THERAPY Patient presented to therapy in sitting position in bedside chair. Patient is MINTO. Patient has hemiparesis on L SIDE. Patient is NOT on spO2. Patient agrees to therapy session. Patient was identified by name and . Patient performed SIT transfer with MAX A X 1 with V/Cs for pushing off armrests with hands, scooting forwards in chair, and wide SOCO. Patient stood at W/W with CGA X 1 for 2 minutes x 2 with verbal cues for straigthening R Knee, upright posture, pushing down on handles of walker with hands, and wider SOCO. Patient ambulated 6' x 1 forwards and then backwards with W/W and V/Cs for safe technique. Patient transfereed back to bedside chair with MIN A X 1 WITH V/Cs FOR PUTTING HANDS BACK ON ARMRESTS. Patient then performed seated bilateral LE ther ex in all planes of movement x 20 reps each LE for strengthening in order to improve patient's functional mobilitty. Patient was left in sitting position in bedside chair with LEs raised, call light within reach, and patient decliniing to transfer back to supine in bed. NO CHAIR ALARM PRESENT. Patient was 1:1 with this UNISAW OPERATOR for 25 minutes total. ADOLFO MACK UNISAW OPERATOR
[2018-06-03 16:00] VITALS: BP 112/43
[2018-06-03 20:00] VITALS: BP 141/91
--- NOTE | 2018-06-03 23:30 | NUR ---
PT RESTING IN BED, ASSESSMENT COMPLETE. NO NEW ABNORMALITIES NOTED. ALL NEEDS MET. ALL HS MEDICATIONS TAKEN WITH EASE. WILL CONTINUE TO MONITOR. CALL LIGHT IN REACH.
[2018-06-04] VITALS: BP 160/90
--- NOTE | 2018-06-04 05:06 | NUR ---
PT RESTING IN BED, RESPIRATIONS EASY AND UNLABORED. EASILY AROUSED FOR AM MEDICATIONS. NO COMPLAINTS VOICED AT THIS TIME. ALL NEEDS MET. CALL LIGHT IN REACH.
--- NOTE | 2018-06-04 08:00 | NUR ---
PT APPEARS CONFUSED, WHEN ASKING PATIENT NAME AND BIRTHDAY SHE DID NOT ANSWER. I ASKED IF SHE KNEW WHERE SHE WAS TODAY, DATE AND PATIENT RESPONDED SHE DID NOT KNOW. PT FOLLOWS COMMANDS WITHOUT DIFFICULTY AND IS COORPORATIVE. PT SEEMS SOMEWHAT HARD OF HEARING.
--- NOTE | 2018-06-04 09:29 | NUR ---
PHYSICAL THERAPY Patient presented to therapy in supine with head of bed elevated. Patient has no complaints or concerns. Patient agrees to therapy session. Patient was identified by name and . Patient performed supine to sitting at EOB transfer with MAX A X 1 with verbal cues to roll to L side AND USE RAILING TO PUSH OFF WITH. Patient then transferred STS with MOD A X 1 from EOB. Patient ambulated 2 ft. to in front of bedside chair with W/W and MIN A X 1 and then transferred to bedside chair with MIN A X 1 WITH VERBAL CUES FOR PUTTING HANDS BACK on armrests. Patient transferred STS from bedside chair with MAX A X 1. PATIENT AMBULATED 8' X 1 with W/W with MIN A X 1 to CGA X 1 with verbal cues for widening SOCO, upright posture, and STRAIGHTENING R LE. Patient then performed retro-gait with W/W and MOD A X 1 with one significant LOB while backing up, which required the therapist to correct. Patient then transferred to bedside chair with MIN A X 1 with verbal cues for putting hands back. Patient sat in bedside chair and performed bilateral LE ther ex in all planes of movement for strengthening the LEs in order to facillitate functional mobility. All ther ex performed with 2 x 10 reps each. Patient was left in sitting position with call light within reach , bed alarm activated and attached, and tray table with breakfast in front of patient. Patient was 1:1 with this MASTER CARPENTER for 25 minutes total. Patient is recommended to SNF upon D/C.
[2018-06-04 12:00] VITALS: BP 134/60
[2018-06-04 16:00] VITALS: BP 152/77
--- NOTE | 2018-06-04 16:34 | NUR ---
PT WILL NOT TAKE EVENING MEDICATION UNLESS SHE HAS A COLA, WILL ORDER PATIENT COLA FROM [facility] AND GIVEN MEDICATIONS WHEN AVAILABLE
[2018-06-04] MEDS ORDERED: MEDROL DOSEPAK4 MG PO (17:00)
[2018-06-04] MEDS ORDERED: AUGMENTIN 875-875 MG PO (17:00)
--- NOTE | 2018-06-04 17:53 | NUR ---
[facility]OKE TO RN AT [facility], AWARE PT WILL COME BACK TONIGHT. GAVE NURSE TO NURSE REPORT. WILL CALL [facility] BACK AND NOTIFY THEM OF A TIME FOR TRANSPORT. [facility], WILL CALL DAUGHTER
--- NOTE | 2018-06-04 18:47 | NUR ---
PATIENTS DAUGHTER JENNIFER MADE AWARE [facility], CALLED AND NOTIFIED [facility] OF THE TIME
--- NOTE | 2018-06-04 19:44 | NUR ---
PT PICKED UP BY [facility] FOR TRANSPORT BACK TO [facility]
--- NOTE | 2018-06-05 07:30 | NUR ---
PHYSICAL THERAPY CO-SIGN I approve of the Phyical Therapy notes written above. KELVIN RETANA PT
== END 2018-06-04 19:40 | DRG 193 ==
LOC: ED 18:15 → 4E 22:26 → EDHOLD 22:26 → 4E 23:05
PROVIDERS: Nurse Practitioner Family; ADMIT Internal Medicine
DX: J18.9 Pneumonia, unspecified organism (principal); J96.21 Acute and chronic respiratory failure with hypoxia; J44.1 Chronic obstructive pulmonary disease with (acute) exacerbation; E44.0 Moderate protein-calorie malnutrition; J44.0 Chronic obstructive pulmonary disease with (acute) lower respiratory infection; M81.0 Age-related osteoporosis without current pathological fracture; R62.7 Adult failure to thrive; G30.9 Alzheimer's disease, unspecified; F02.80 Dementia in other diseases classified elsewhere, unspecified severity, without behavioral disturbance, psychotic disturbance, mood disturbance, and anxiety; I48.2 Chronic atrial fibrillation; E78.2 Mixed hyperlipidemia; E03.9 Hypothyroidism, unspecified; I11.0 Hypertensive heart disease with heart failure; I50.9 Heart failure, unspecified; K59.09 Other constipation; J20.9 Acute bronchitis, unspecified; Z68.28 Body mass index [BMI] 28.0-28.9, adult; Z88.9 Allergy status to unspecified drugs, medicaments and biological substances; Z87.81 Personal history of (healed) traumatic fracture

== ENCOUNTER 2018-06-17 15:33 | Inpatient (IN) | payer MEDICARE, OTHER ==
[~2018-06-17] VITALS: Ht 167.6 cm; Wt 50.1 kg
--- NOTE | ~2018-06-17 | PR ---
[place], [place] PROGRESS NOTE NAME: RUBIO TONEY [facility] #: [id number] UNIT #: [id number] ROOM: 419 DOCTOR: CORY ARZOLA MD BIRTHDATE: [birth year] DOS: SUBJECTIVE: The patient is doing well, does not have any new complaints. OBJECTIVE: VITAL SIGNS: Pressure is 127/67, pulse of 98, respirations 20, temperature 98.4. LUNGS: Clear. HEART: Irregular. ABDOMEN: Soft and nontender. EXTREMITIES: Without any edema. ASSESSMENT AND PLAN: 1. Acute Clostridium difficile diarrhea, on medications. 2. Colovaginal fistula has been ruled out with workup. 3. Severe protein-calorie malnutrition. I advised increasing protein intake. 4. Adult failure to thrive, go back to assisted on palliative care. CORY ARZOLA MD CM:CHAPARRO [id number] CORY ARZOLA MD 06/20/18 2150 interface
--- NOTE | ~2018-06-17 | DS ---
[place], [place] DISCHARGE SUMMARY NAME: RUBIO TONEY [facility] #: [id number] UNIT #: [id number] ROOM: 419 DOCTOR: CORY ARZOLA MD BIRTHDATE: [birth year] DOS: 06/20/2018 DIAGNOSES: 1. Diarrhea from clostridium difficile infection. 2. Advance failure to thrive, adult. 3. Severe protein-calorie malnutrition. 4. Chronic atrial fibrillation, not a candidate for anticoagulants. 5. Benign hypertension. 6. Mixed hyperlipidemia. 7. Hypothyroidism. 8. Major depression, moderate. 9. Postmenopausal osteoporosis. 10. Multi-infarct dementia. Sepsis was ruled out with negative blood cultures. HOSPITAL COURSE: The patient is 88 years old, was sent out because of correction felt that the patient had stool coming out of the vaginal area. The patient was evaluated in the ER and was admitted. After admission, she was placed on vancomycin and Flagyl for acute C. diff infection and was also started on IV fluids. A CT of the abdomen and pelvis was done, which was unremarkable except for diffuse colitis. She also had a Gastrografin enema done, which ruled out colovaginal fistula. The patient did have some swelling in the left lower leg, venous Doppler was done, which did not show any evidence of DVT. The patient's overall condition is extremely poor and has suggested the patient go on hospice care. The family has accepted palliative care, which will be continued at the correction. The patient's overall prognosis remains extremely poor and guarded. She has severe protein-calorie malnutrition and should increase the protein intake. DISCHARGE MEDICATIONS: Metronidazole 250 mg q.i.d. for 2 weeks, then t.i.d. for 1 week, twice a day for 1 week and then discontinued; vancomycin 250 mg p.o. q.i.d. for 2 weeks, t.i.d. for 1 week, b.i.d. for 1 week and then discontinued; Risperdal 0.5 at bedtime; Megace 40 mg twice a day; tramadol 1 tablet twice a day p.r.n.; losartan 50 daily; Exelon 9.5 patch daily; aspirin 81 daily; alendronate 70 once weekly; duloxetine 60 at bedtime; ranitidine 300 daily; Tylenol 325 q. 6 p.r.n. for pain or fever; levothyroxine 50 mcg daily; PreserVision 1 tablet daily, Pravachol 40 daily; Colace 100 b.i.d. p.r.n. for constipation; calcium 600 mg p.o. b.i.d. DIET: [place]. [place], [place] DISCHARGE SUMMARY NAME: RUBIO TONEY UNIT #: [id number] ROOM: [facility] DOCTOR: CORY ARZOLA MD BIRTHDATE: [birth year] CORY ARZOLA MD CM:ANEESH 7 CORY ARZOLA MD 06/20/1829 interface
--- NOTE | ~2018-06-17 | EKG ---
[place], [place] ELECTROCARDIOGRAM REPORT NAME: RUBIO TONEY UNIT #: [id number] ROOM: 419 DOCTOR: EPIPHANY DRAFT REPORT BIRTHDATE: [birth year] [facility] Test Date: 2018-06-17 Test Time: 17:32:49 Pat Name: RUBIO TONEY Department: Room: 419 Gender: F Certified Coder: Sheila Muñoz : 1930 Requested By: LATA GIBBS Order Number: [id number] Reading MD: Kobi Larsen MD Measurements Intervals [place] Rate: 89 P: LA: QRS: -9 QRSD: 91 T: 52 QT: 370 QTc: 451 Interpretive Statements Atrial fibrillation Minimal ST elevation, anterior leads- not significant Baseline wander in lead(s) V1 Compared to ECG 05/30/2018 18:51:52 ST (T wave) deviation now present Electronically Signed On 06-19-2018 9:04:32 PST by Kobi Larsen MD CM:EKGRPT:ELECTROCARDIOGRAM REPORT 1732 [id number] LATA GIBBS EPIPHANY DRAFT REPORT LATA GIBBS
--- NOTE | ~2018-06-17 | PR ---
[place], [place] PROGRESS NOTE NAME: RUBIO TONEY [facility] #: [id number] UNIT #: [id number] ROOM: 419 DOCTOR: CORY ARZOLA MD BIRTHDATE: [birth year] DOS: 06/19/2018 SUBJECTIVE: She was sitting up in bed much more awake and alert and today she is able to communicate. Yesterday, she was pretty nonverbal. OBJECTIVE: VITAL SIGNS: Blood pressure is 113/72, pulse of 92, respirations 20, temperature 98.9. LUNGS: Clear. HEART: Irregular, heart rate in the low 90s. ABDOMEN: Soft, nontender. EXTREMITIES: Without any edema. ASSESSMENT AND PLAN: 1. Clostridium difficile diarrhea, on multiple medications. 2. Possibility of colonic vaginal fistula was ruled out with Gastrografin enema. Venous Doppler was done, ruled out the DVT of the left lower lobe. 3. Lactic acidosis, possibly from sepsis from underlying Clostridium difficile diarrhea. 4. Hypokalemia. Supplementation is ordered. The patient continues to be on IV fluids. Rate will be slowed down. 5. Protein calorie malnutrition. Overall, extremely poor prognosis. Suggested hospice palliative care has been accepted by family. Plan is to discharge her back to the longterm tomorrow. CORY ARZOLA MD CM:PNTRANS 0816 [id number] CORY ARZOLA MD 06/28/18 0753 interface
--- NOTE | ~2018-06-17 | WRIGHTHP ---
[place], [place] PATIENT HISTORY AND PHYSICAL EXAM NAME: RUBIO TONEY [facility] #: [id number] UNIT #: [id number] ROOM: 419 DOCTOR: CORY ARZOLA MD BIRTHDATE: [birth year] DOS: HISTORY OF PRESENT ILLNESS: This patient is 88 years old, very well known to us, was recently diagnosed with C. diff diarrhea, was placed on vancomycin p.o., staff noted that she had stool coming out of the vaginal area. The patient this morning is resting, does not have any complaints. She is mostly nonverbal. The patient was evaluated in the ER and had a CT of the abdomen and pelvis, which was unremarkable and she had been admitted. This morning, the patient is mostly nonverbal, does not communicate much. She nods to questions occasionally. PAST MEDICAL HISTORY: 1. Significant for advanced failure to thrive adult. 2. Severe protein calorie malnutrition. 3. Chronic atrial fibrillation, not a candidate for anticoagulants. 4. Mixed hyperlipidemia. 5. Benign hypertension. 6. Hypothyroidism. 7. Major depression, moderate. 8. Postmenopausal osteoporosis. 9. Multi-infarct dementia. MEDICATIONS: That she is on are aspirin 81 mg daily, Fosamax 70 once weekly, Colace 100 b.i.d., calcium 600 b.i.d., duloxetine 60 daily, levothyroxine 50 mcg daily, Megace 40 b.i.d., Pravachol 40 daily, ranitidine 300 daily, Risperdal 0.5 at bedtime. SOCIAL HISTORY: Nonsmoker. Resident of [facility]. PHYSICAL EXAMINATION: GENERAL: She is awake and alert. Orientation is questionable. She again mostly is nonverbal. VITAL SIGNS: Graphic trend shows a pressure of 132/70, pulse of 80, respirations 14, afebrile. LUNGS: Diminished breath sounds. No wheezes, rales or rhonchi heard. HEART: Regular. ABDOMEN: Soft, scaphoid. EXTREMITIES: Without any edema. Examination of the perineal area did not show any stool coming out of the rectum. I did not do a speculum exam. ASSESSMENT AND PLAN: 1. The patient who presents with the stool out of the vaginal area, there is no fistula noted on a CT of the abdomen and pelvis, which is not clearly a good study for that. We will do a Gastrografin enema today. 2. Pancolitis, most likely from the C. diff, will be placing on vancomycin and Flagyl p.o. as well as IV fluids. 3. Lactic acidosis, most likely from the underlying infection and sepsis pattern. 4. Benign hypertension. Hold off on antihypertensives now. 5. Major depression. Continue home medications. Overall, prognosis remains extremely poor and guarded in the 88-year-old patient who is quite [place], [place] PATIENT HISTORY AND PHYSICAL EXAM NAME: RUBIO TONEY UNIT #: [id number] ROOM: [facility] DOCTOR: CORY ARZOLA MD BIRTHDATE: [birth year] deconditioned. Would be a candidate for palliative or hospice care. We will ask the social service to look into it. CORY ARZOLA MD CM:HISPHYS:PATIENT HISTORY AND PHYSICAL EXAMINATION 0817 0835 CORY ARZOLA MD 06/28/18 0754 interface
[~2018-06-17 15:33] MED LIST changes: +AUGMENTIN 875-875 MG PO; +MEDROL DOSEPAK4 MG PO; +MEGESTROL ACETA40 MG PO
[2018-06-17 15:34] VITALS: BP 113/61
--- NOTE | 2018-06-17 15:34 | NUR ---
PT PLACED IN ISOLATION FOR C DIFF.
[2018-06-17 16:39] LABS: BASO % 0.2 % (0.0-1.0); EOS # 0.1 10*3/uL (0.0-0.4); EOS % 0.6 % (1.0-4.0); HEMATOCRIT 36.5 % (37.0-47.0); HEMOGLOBIN 12.6 g/dl (12.0-16.0); LYMPH # 1.1 10*3/uL (1.3-4.4); LYMPH % 7.7 % (27.0-41.0); MEAN CELL VOLUME 90.3 fl (81.0-99.0); MEAN CORPUSCULAR HGB 31.2 pg (27.0-31.0); MEAN CORPUSCULAR HGB CONC 34.5 g/dl (33.0-37.0); MEAN PLATELET VOLUME 9.3 fl (9.6-12.3); MONO # 0.4 10*3/uL (0.1-1.0); MONO % 2.6 % (3.0-9.0); NEUT % 88.4 % (47.0-73.0); PLATELET COUNT AUTOMATED 205 10*3/uL (130-400); RED BLOOD COUNT 4.04 10*6/uL (4.10-5.10); RED CELL DISTRI WIDTH 18.2 % (0-14.5); WHITE BLOOD COUNT 13.6 10*3/uL (4.8-10.8)
--- NOTE | 2018-06-17 16:51 | NUR ---
LATA CUMMINGS AWARE OF CRITICAL LACITC ACID OF 3.2
[2018-06-17 17:00] VITALS: BP 122/78
[2018-06-17 17:03] LABS: ALBUMIN 2.2 gm/dl (3.1-4.5); ALKALINE PHOSPHATASE 103 U/L (45-117); BUN 9 mg/dl (7-24); CHLORIDE 101 mmol/L (98-107); POTASSIUM 2.9 mmol/L (3.5-5.1); SGOT/AST 20 IU/L (3-35); SGPT/ALT 19 U/L (12-78); SODIUM 132 mmol/L (136-145); TOTAL PROTEIN 6.2 gm/dL (6.4-8.2)
[2018-06-17 17:06] LABS: TROPONIN I 0.138 ng/ml (<0.045)
--- NOTE | 2018-06-17 17:27 | NUR ---
GREEN CATHETER INSERTED VIA HOSPITAL POLICY AND PT CLEANED FOR COMFORT. PT TOLERATED.
[2018-06-17 17:38] LABS: BILIRUBIN NEGATIVE (NEGATIVE); BLOOD NEGATIVE (NEGATIVE); CLARITY SL CLOUDY (CLEAR); COLOR YELLOW (YELLOW); GLUCOSE NEGATIVE (NEGATIVE); KETONE NEGATIVE (NEGATIVE); LEUKO ESTERASE NEGATIVE (NEGATIVE); NITRITE NEGATIVE (NEGATIVE); SPECIFIC GRAVITY 1.015 (1.005-1.030); UROBILINOGEN 0.2 E.U./dl (0.2-1.0)
[2018-06-17 17:50] LABS: BACTERIA TRACE; YEAST 1+
[2018-06-17 17:51] LABS: RBC 0-2 rbc/hpf (0-2)
[2018-06-17 19:12] VITALS: BP 118/65
--- NOTE | 2018-06-17 20:15 | NUR ---
Time: 2014 A 88 year old FEMALE admitted to 4E under services of DR. NESS UG,CORY. Pt. arrived via stretcher from ER. Chief complaint: ABD PAIN. ESTHER ESCALERA
[2018-06-17] MEDS ORDERED: MILK OF MA400 MG/5 M PO (20:26)
[2018-06-17] MEDS ORDERED: RISPERDAL0.5 MG PO (20:27)
[2018-06-17] MEDS ORDERED: VANCOMYCIN HCL250 MG PO (20:30)
--- NOTE | 2018-06-17 20:34 | NUR ---
MED REC COMPLETED PER MED LIST SENT FROM [facility]
--- NOTE | 2018-06-17 20:41 | NUR ---
DR. ARZOLA CONTACTED NURSE REGARDING PATIENT ADMISSION, SEE NEW ORDERS.
--- NOTE | 2018-06-17 20:52 | NUR ---
DR. ARZOLA WANTS TO HOLD ALL MEDS AT THIS TIME.
[2018-06-17 20:58] VITALS: BP 136/72
--- NOTE | 2018-06-17 22:22 | NUR ---
2200 MEDICATIONS GIVEN AT THIS TIME, PATIENT TOLERATED WELL. CALL LIGHT IS WITHIN REACH.
[2018-06-18] VITALS: BP 118/64
--- NOTE | 2018-06-18 07:30 | NUR ---
Patient resting quietly with no c/o discomfort. Respirations easy and regular. Vital signs stable. No overt distress. LATA KIMBLE
[2018-06-18 08:00] VITALS: BP 130/65
--- NOTE | 2018-06-18 08:27 | NUR ---
24 HR chart check completed.
--- NOTE | 2018-06-18 08:52 | NUR ---
MESSAGE LEFT FOR DR TIM CONSULT ON CELL.
--- NOTE | 2018-06-18 10:00 | NUR ---
Customs Compliance Director in to see patient. She is not currently in her room. Will follow up at a later time.
--- NOTE | 2018-06-18 10:19 | NUR ---
Spoke to daughter, Laurel, at [phone] regarding palliative care vs hospice. Family had spoke to Dr. Hinkle during patient's last admission regarding hospice. Informed daughter the nurse practitioner with palliative care will be here this afternoon to speak with the patient. Daughter stated her sister should be here at the hospital about noon. Daughter stated she would have her sister notify social worker school once she was here at the hospital. Informed palliative care nurse of above conversation.
--- NOTE | 2018-06-18 10:27 | NUR ---
Faxed palliative care referral to [facility].
--- NOTE | 2018-06-18 11:41 | NUR ---
Patient comes from the [facility] where she resides as skilled nursing; according to the facility, the patient had C-Diff at their facility prior to our admission. Patient does have a private room and is ok to return when medically stable for discharge.
--- NOTE | 2018-06-18 11:45 | NUR ---
BACK FROM SURGERY, MEDICATIONS GIVEN.
--- NOTE | 2018-06-18 12:30 | NUR ---
DR ST IN TO SEE PT FOR DR TIM.
--- NOTE | 2018-06-18 15:15 | NUR ---
Nursing screen received and chart review completed. [facility] and stool coming from vagina area. At this time patient is medically ill. Consider Occupational Therapy referral if patient has a decline in ADLs or functional mobility after medically improved and able to participate. Thank you. Maritza Schofield OTR/ll
--- NOTE | 2018-06-18 15:35 | NUR ---
Spoke to Ned Leoanrd NP from Palliative Care. She discussed hospice with family and they are agreeable. CM spoke to family and they do not want hospice they want palliative care to follow her on discharge back to [facility]. Attempted to reach out to Ned Leonard NP with no success. Spoke to palliative care nurse, Lindsay, and notified of family requesting palliative care to follow patient on discharge back to [facility].
[2018-06-18 16:00] VITALS: BP 131/57
--- NOTE | 2018-06-18 16:04 | NUR ---
SPEECH PATHOLOGY Nursing screen completed. There are no reports of acute communication difficulty. There are no reports of dysphagia. Speech pathology services are not indicated at this time however this dept. will remain available should future needs present. J[facility]AN [facility]
[2018-06-18 20:00] VITALS: BP 127/77
--- NOTE | 2018-06-18 20:53 | NUR ---
PATIENT IS AAOX2 PERSON AND PLACE WITH EASY AND REGULAR RESPERS ON ROOM AIR. ASSESSMENT IS COMPLETE WITH NO C/O OR S/S OF DISTRESS NOTED AT THIS TIME. BED IS LOW, LOCKED, ALARMED, AND CALL LIGHT IS WITHIN REACH. SEE SHIFT ASSESSMENT.
--- NOTE | 2018-06-18 22:10 | NUR ---
2200 MEDICATIONS GIVEN AT THIS TIME, PATIENT TOLERATED WELL. CALL LIGHT IS WITHIN REACH.
[2018-06-19] VITALS: BP 113/72
--- NOTE | 2018-06-19 02:00 | NUR ---
PATIENT IS SLEEPING WITH EASY AND REGULAR RESPERS ON ROOM AIR. CALL LIGHT IS WITHIN REACH.
[2018-06-19 06:32] LABS: BASO # 0.1 10*3/uL (0.0-0.1); BASO % 0.5 % (0.0-1.0); EOS # 0.2 10*3/uL (0.0-0.4); EOS % 1.9 % (1.0-4.0); LYMPH # 1.2 10*3/uL (1.3-4.4); LYMPH % 11.8 % (27.0-41.0); MEAN CELL VOLUME 90.4 fl (81.0-99.0); MEAN CORPUSCULAR HGB CONC 34.3 g/dl (33.0-37.0); MONO # 0.3 10*3/uL (0.1-1.0); MONO % 3.2 % (3.0-9.0); NEUT # 8.4 10*3/uL (2.3-7.9); PLATELET COUNT AUTOMATED 172 10*3/uL (130-400); RED BLOOD COUNT 3.35 10*6/uL (4.10-5.10); RED CELL DISTRI WIDTH 18.4 % (0-14.5); WHITE BLOOD COUNT 10.3 10*3/uL (4.8-10.8)
[2018-06-19 06:39] LABS: HEMATOCRIT 30.3 % (37.0-47.0); HEMOGLOBIN 10.4 g/dl (12.0-16.0)
[2018-06-19 06:41] LABS: BUN 5 mg/dl (7-24); CHLORIDE 109 mmol/L (98-107); CREATININE 0.61 mg/dL (0.55-1.02); POTASSIUM 3.3 mmol/L (3.5-5.1); SODIUM 137 mmol/L (136-145)
--- NOTE | 2018-06-19 07:41 | NUR ---
24 HR chart check completed. Patient resting quietly with no c/o discomfort. Respirations easy and regular. Vital signs stable. No overt distress. LATA KIMBLE
[2018-06-19 08:00] VITALS: BP 147/74
--- NOTE | 2018-06-19 09:31 | NUR ---
Received call from Lindsay at [facility]; she stated Laurel POST PARTUM NURSE, met with family yesterday and discussed options and after that there was some confusion regarding whether or not they wanted Palliative or Hospice. Lindsay called and discussed both programs with family at length again; family stated they would like hospice. Received order and [facility].
--- NOTE | 2018-06-19 10:00 | NUR ---
PT FEEDING SELF BUT REFUSING TO TAKE AM MEDS. RN WILL DISCUSS AND TRY TO COORDINATE W/ FAMILY.
--- NOTE | 2018-06-19 12:00 | NUR ---
Patient resting quietly with no c/o discomfort. Respirations easy and regular. Vital signs stable. No overt distress. LATA KIMBLE
[2018-06-19 16:00] VITALS: BP 151/91
--- NOTE | 2018-06-19 16:00 | NUR ---
DAUGHTER IN ROOM.
[2018-06-19 20:00] VITALS: BP 138/78
--- NOTE | 2018-06-19 22:00 | NUR ---
PATIENT RESTING IN BED QUIETLY WITH EYES CLOSED AT THIS TIME. RESPIRATIONS ARE QUIET AND UNLABORED ON ROOM AIR. NO SIGNS OR SYMPTOMS OF DISTRESS SEEN. CALL LIGHT IS WITHIN REACH OF PATIENT. PATIENT EASILY AWAKENS TO VOICE. PATIENT MEDICATED AT THIS TIME, PER DRS ORDERS. PATIENT TOLERATED PO MEDS WELL. DENIES OTHER NEEDS AT THIS TIME. PATIENT INSTRUCTED TO USE CALL LIGHT IF ASSISTANCE IS NEEDED. BED ALARM ON FOR PATIENT SAFETY. RN WILL CONTINUE TO MONITOR THID PATIENT.
[2018-06-20] VITALS: BP 127/67
--- NOTE | 2018-06-20 07:30 | NUR ---
Patient resting quietly with no c/o discomfort. Respirations easy and regular. Vital signs stable. No overt distress. LATA KIMBLE
[2018-06-20 08:00] VITALS: BP 144/86
[2018-06-20] MEDS ORDERED: METRONIDAZOLE250 M1 PO (08:42)
[2018-06-20 09:00] VITALS: BP 144/86
--- NOTE | 2018-06-20 11:04 | NUR ---
DAUGHTER DREA NOTIFIED OF PT'S PENDING TRANSFER TO IN AT 1130.
--- NOTE | 2018-06-20 11:40 | NUR ---
LEAVING VIA [facility] FOR [place].
--- NOTE | 2018-06-20 12:02 | NUR ---
REPORT CALLED TO NURSE AT [facility], QUESTIONS ANSWERED.
--- NOTE | 2018-06-20 12:13 | NUR ---
Message left for Yury social science manager, at [facility] regarding patient having [facility]. Awaiting return call.
--- NOTE | 2018-06-20 16:00 | NUR ---
PHYSICAL THERAPY Nursing screen received. PAtient discharged. Thank you. Shalini Acosta,PT
== END 2018-06-20 11:40 | DRG 371 ==
LOC: ED 15:33 → EDHOLD 19:09 → 4E 19:09
PROVIDERS: Nurse Practitioner Family; ADMIT Internal Medicine
DX: A04.72 Enterocolitis due to Clostridium difficile, not specified as recurrent (principal); E43 Unspecified severe protein-calorie malnutrition; E87.2 Acidosis; K51.00 Ulcerative (chronic) pancolitis without complications; Z68.1 Body mass index [BMI] 19.9 or less, adult; K62.89 Other specified diseases of anus and rectum; I10 Essential (primary) hypertension; E87.6 Hypokalemia; R62.7 Adult failure to thrive; I48.2 Chronic atrial fibrillation; Z66 Do not resuscitate; Z51.5 Encounter for palliative care; E78.2 Mixed hyperlipidemia; E03.9 Hypothyroidism, unspecified; F32.9 Major depressive disorder, single episode, unspecified; I73.9 Peripheral vascular disease, unspecified; M81.0 Age-related osteoporosis without current pathological fracture; F03.90 Unspecified dementia, unspecified severity, without behavioral disturbance, psychotic disturbance, mood disturbance, and anxiety; Z91.048 Other nonmedicinal substance allergy status; Z87.440 Personal history of urinary (tract) infections; Z98.51 Tubal ligation status